=== PATIENT | male | born 1955 | race Caucasian/White ===

== ENCOUNTER 2020-02-05 07:46 | Emergency (ER) | payer OTHER ==
[2020-02-05] MEDS ORDERED: Bacitracin Oint 1 GM U/D Packet TOP ONE (07:51)
--- NOTE | 2020-02-05 08:42 | EDM.PDOC ---
ED HPI GENERAL MEDICAL PROBLEM - General Chief Complaint: General Stated Complaint: FISH HOOK LEFT HAND Time Seen by Provider: 02/05/20 07:51 Source of Information: Reports: Patient, RN Notes Reviewed History Limitations: Reports: No Limitations - History of Present Illness INITIAL COMMENTS - FREE TEXT/NARRATIVE: Has a fishhook in his left index finger no functional complaints Left Finger-Index Pain Score (Numeric/FACES): 2 - Related Data Allergies Allergy/AdvReac Type Severity Reaction Status Date / Time No Known Allergies Allergy Verified 02/05/20 08:06 Home Meds: Home Meds Cetirizine HCl [Zyrtec] 10 mg PO DAILY 02/05/20 [History] Lisinopril/Hydrochlorothiazide [Lisinopril-Hctz 10-12.5 mg Tab] 1 each PO DAILY 02/05/20 [History] Past Medical History HEENT History: Reports: None Cardiovascular History: Reports: Hypertension Respiratory History: Reports: None Gastrointestinal History: Reports: None Genitourinary History: Reports: Renal Calculus Musculoskeletal History: Reports: None Neurological History: Reports: None Psychiatric History: Reports: None Endocrine/Metabolic History: Reports: None Hematologic History: Reports: None Immunologic History: Reports: None Oncologic (Cancer) History: Reports: Basal Cell Carcinoma, Malignant Melanoma, Squamous Cell Carcinoma Dermatologic History: Reports: None - Infectious Disease History Infectious Disease History: Reports: None - Past Surgical History Cardiovascular Surgical History: Reports: None Male Surgical History: Reports: Kidney Stone Extraction, Lithotripsy ([facility]) Social & Family History - Tobacco Use Smoking Status *Q: Never Smoker - Caffeine Use Caffeine Use: Reports: None - Recreational Drug Use Recreational Drug Use: No ED ROS GENERAL - Review of Systems Review Of Systems: See Below Skin: Reports: Wound ED EXAM, GENERAL - Physical Exam Exam: See Below Free Text/Narrative:: Has a fishhook left index finger after adequate anesthesia with a digital block of the left index finger 1 cc of lidocaine 1% without epinephrine was used prepped and draped in usual manner an 18-gauge needle was used over the maria dolores and backed the fishhook out, full range of motion of all digits radial pulses +2 no apparent complications Exam Limited By: No Limitations General Appearance: Alert, WD/WN, No Apparent Distress Course - Vital Signs Last Recorded V/S: Last Vital Signs Temp 97.0 F 02/05/20 08:14 Pulse 49 L 02/05/20 08:14 Resp 13 02/05/20 08:14 BP 148/76 H 02/05/20 08:14 Pulse Ox 96 02/05/20 08:14 - Orders/Labs/Meds Meds: Medications Discontinued Medications Generic Name Dose Route Start Last Admin Trade Name Júnior PRN Reason Stop Dose Admin Bacitracin 1 dose 02/05/20 07:51 02/05/20 08:33 Bacitracin Oint 1 Gm TOP 02/05/20 07:52 1 dose ONETIME ONE Administration Lidocaine HCl 5 ml 02/05/20 07:51 02/05/20 08:33 Xylocaine-Mpf 1% INJECT 02/05/20 07:52 5 ml ONETIME ONE Administration Departure - Departure Time of Disposition: 08:42 Disposition: Home, Self-Care 01 Condition: Good Clinical Impression: Fish hook injury of left index finger Qualifiers: Encounter type: initial encounter Qualified Code(s): S69.92XA - Unspecified injury of left wrist, hand and finger(s), initial encounter - Discharge Information Referrals: Doyle Davis SENIOR ADVISORY [Primary Care Provider] - Additional Instructions: Follow-up primary care as needed Sepsis Event Note (ED) - Evaluation Sepsis Screening Result: No Definite Risk - Focused Exam Vital Signs: Vital Signs Temp Pulse Resp BP Pulse Ox 02/05/20 08:14 97.0 F 49 L 13 148/76 H 96 - Assessment/Plan Plan: Assessment Acuity = acute Site and laterality = fishhook left index finger Etiology = fishhook Manifestations = none Location of injury = Home Lab values = none Plan Follow-up primary care as needed 2010 This note was dictated using [employer] recognition software please call with any questions on syntax or grammar.
== END 2020-02-05 08:54 | disposition home or self-care (01) ==
LOC: JP.ED 07:46
DX: S60.451A Superficial foreign body of left index finger, initial encounter (principal); I10 Essential (primary) hypertension; Z79.899 Other long term (current) drug therapy; W45.8XXA Other foreign body or object entering through skin, initial encounter
CPT/HCPCS: 64450; 99283; J2001